=== PATIENT | female | born 1935 | race Caucasian/White ===

== ENCOUNTER 2018-11-19 12:30 | Emergency (ER) | payer OTHER, BC ==
--- NOTE | 2018-11-19 12:50 | PDOC ---
Attending Attestation - Resident Resident Name: Aleksander Rodriguez - ED Attending Attestation I have performed the following: I have examined & evaluated the patient, The case was reviewed & discussed with the resident, I agree w/resident's findings & plan, Exceptions are as noted - HPI HPI: Left great toe noted to be red this morning. Small amount of watery drainage. No pain. No known injury, however, patient has peripheral neuropathy which limits her sensation. Past history is notable for A. fib and she is on Eliquis. Water was removed from the area by her pet care assistant approximately one week ago , but she was not prescribed antibiotics. This suggests that it was probably not an infection but most likely a blister due to localized irritation - Physicial Exam PE: 11/19/18 13:47 There is significant lateral deviation of the toe, and this deformity would appeared to expose the affected skin to damage by tight footwear. There is what appears to be an old bullous lesion on the great toe, medial aspect, not involving the nail margin or the distal phalanx. It is erythematous but it does not sue with pressure and there is clear, watery fluid beneath a flaccid epidermis. The toe is nontender. There is no induration. There is no pain with motion. The foot is warm, pulses are intact, capillary refill is prompt, but sensation is decreased bilaterally consistent with a peripheral neuropathy. There is no joint swelling or effusion. 11/19/18 13:52 - Medical Decision Making 11/19/18 13:49 Assessment: Most likely etiology is a pressure blister/bulla due to tight footwear, and that the patient was unaware of the pressure because of her peripheral neuropathy. There is no evidence of arterial compromise or infection Plan: A culture was obtained from the base of the bulla. The patient was advised to rest and elevate the foot, to use closed toe shoes as little as possible for the next few days, and thereafter to make sure she wears a wide box toe shoe. If the culture is positive, antibiotics will be prescribed. She is aware that it may take 24-48 hours for culture results. In the meantime, if the redness spreads, or the toe becomes more painful, she is instructed to return to the emergency room for further evaluation. Otherwise she will follow- up with her primary physician.
[2018-11-19 12:54] VITALS: BP 170/103; PULSE 85; TEMP 97.4; BMI 30.7
--- NOTE | 2018-11-19 13:49 | PDOC ---
History of Present Illness - General Chief Complaint: Injury Stated Complaint: LEFT GREAT TOE REDDENED Time Seen by Provider: 11/19/18 12:49 - History of Present Illness Initial Comments: 11/19/18 13:36 83f with pmh of a-fib on eliqis, CVA, COPD/Asthma, HTN and HLD presnets to the ED for bright redness over the left 1st toe and clear drainage since waking up this morning. She's had burning of all her toes with itching up to below the knees in the mornings for the past 3 weeks, going back to normal as the day go by and noticing that her left 1st toe had a "swollen sac" last Thursday that was drained by her muck miner. After that drainage the toe's color went back to normal until today. Since then she has been applying Mupirocin cream to the toe every day, cream that she also uses on her face without any side effects. She denies any change in medication, trauma, shortness of breath or fever. Past History - Past Medical History Allergies/Adverse Reactions: Allergies Allergy/AdvReac Type Severity Reaction Status Date / Time Penicillins Allergy Severe Rash Verified 11/19/18 12:35 Home Medications: Ambulatory Orders Apixaban [Eliquis] 5 mg PO BID 11/19/18 Aspirin 81 mg PO DAILY 11/19/18 Atorvastatin Ca [Lipitor] 80 mg PO HS 11/19/18 Budesonide/Formeterol Fumarate [SYMBICORT 160/4.5mcg -] 1 puff IN DAILY Digoxin [Lanoxin -] 0.125 mg PO DAILY 11/19/18 Furosemide [Lasix -] 40 mg PO DAILY 11/19/18 Montelukast Na [Singulair -] 5 mg PO HS 11/19/18 Montelukast Sodium [Singulair] 10 mg PO DAILY 11/19/18 Theophylline Anhydrous [Aries-24] 400 mg PO DAILY 11/19/18 Tolterodine Tartrate [Tolterodine Tartrate ER] 4 mg PO DAILY 11/19/18 Asthma: Yes Cardiac Disorders: Yes (A FIB) CVA: Yes COPD: Yes HTN: Yes - Surgical History Appendectomy: Yes Cholecystectomy: Yes - Suicide/Smoking/Psychosocial Hx Smoking History: Former smoker Have you smoked in the past 12 months: No If you are a former smoker, when did you quit?: 34 YEARS Information on smoking cessation initiated: No Hx Alcohol Use: Yes (SOCIAL) Drug/Substance Use Hx: No Review of Systems - Review of Systems Able to Perform ROS?: Yes Is the patient limited Georgian proficient: No Constitutional: No: Symptoms Reported HEENTM: No: Symptoms Reported Respiratory: No: Symptoms reported Cardiac (ROS): No: Symptoms Reported ABD/GI: No: Symptoms Reported : No: Symptoms Reported Musculoskeletal: No: Symptoms Reported Integumentary: Yes: See HPI Neurological: No: Symptoms reported Endocrine: No: Symptoms Reported Hematologic/Lymphatic: No: Symptoms Reported All Other Systems: Reviewed and Negative *Physical Exam - Vital Signs Last Vital Signs Temp Pulse Resp BP Pulse Ox 97.4 F L 85 20 170/103 H 97 11/19/18 12:34 11/19/18 12:34 11/19/18 12:34 11/19/18 12:34 11/19/18 12:34 - Physical Exam General Appearance: Yes: Nourished, Appropriately Dressed. No: Apparent Distress HEENT: positive: EOMI, LYNDA, Normal ENT Inspection Respiratory/Chest: positive: Wheezing. negative: Chest Tender, Respiratory Distress Cardiovascular: positive: Irregularly Irregular Gastrointestinal/Abdominal: positive: Normal Bowel Sounds, Soft. negative: Tender Musculoskeletal: positive: Normal Inspection. negative: CVA Tenderness Extremity: positive: Pedal Edema (3+) Integumentary: positive: Other (Bright red erythema over dorsal left hallux, clear drainage, no tenderness, normal skin at the tip of the toe, decreased pulses bilaterally, area slightly warmer than on the right, normal nail appearance) Neurologic: positive: Fully Oriented, Alert, Normal Mood/Affect, Normal Response. negative: Motor Strength 5/5 Moderate Sedation - Procedure Monitoring Vital Signs: Procedure Monitoring Vital Signs Temperature 97.4 F L 11/19/18 12:34 Pulse Rate 85 11/19/18 12:34 Respiratory Rate 20 11/19/18 12:34 Blood Pressure 170/103 H 11/19/18 12:34 O2 Sat by Pulse Oximetry (%) 97 11/19/18 12:34 Medical Decision Making - Medical Decision Making 11/19/18 13:53 Local skin irritation vs medication reaction vs vascular process vs infection Culture sent. This is unlikely to be a arterial thrombus as the tip of the toe is unremarkable, unlikely to be an infection as well since the drainage is clear although will make sure with culture. Possible reaction to mupirocin cream although no reaction to her face when applied here. Will discharge with return precaution and follow up with pcp. *DC/Admit/Observation/Transfer Diagnosis at time of Disposition: Toe erythema - Discharge Dispostion Disposition: HOME Condition at time of disposition: Stable Decision to Admit order: No - Referrals Schedule a call back: Wound culture call back if + - Patient Instructions Printed Discharge Instructions: DI for Peripheral Vascular (Arterial) Disease Additional Instructions: Follow up with your primary care physician. Come back to the emergency department for any new, worsening or concerning symptoms. - Post Discharge Activity
== END 2018-11-19 14:24 | disposition home or self-care (01) ==
LOC: FER 12:32
DX: L53.8 Other specified erythematous conditions (principal); Z87.891 Personal history of nicotine dependence; I48.91 Unspecified atrial fibrillation; I10 Essential (primary) hypertension; J44.9 Chronic obstructive pulmonary disease, unspecified; J45.909 Unspecified asthma, uncomplicated
CPT/HCPCS: 87070; 87077; 87205; 99281-25